=== PATIENT | male | born 1955 | race Asian ===

== ENCOUNTER 2025-01-21 12:24 | Outpatient (CLI) | payer SELFPAY ==
[2025-01-21 15:24] LABS: Anion Gap 10.1 mmol/L (3-11); BUN 25 mg/dL (9-23); CO2 26.9 mmol/L (20.0-31.0); Calcium 9.5 mg/dL (8.3-10.6); Chloride 106 mmol/L (98-107); Cholesterol 224 mg/dL (<200); Glucose 88 mg/dL (74-106); HDL Cholesterol 39 mg/dL (>40); Potassium 4.1 mmol/L (3.5-5.1); Sodium 143 mmol/L (136-145)
[2025-01-21 16:22] LABS: Hemoglobin A1C 5.6 % (<5.7)
[2025-01-22 12:46] LABS: PSA, Screening 172.5 ng/mL (<=4.5)
== END 2025-01-21 12:25 | disposition home or self-care (01) ==
LOC: LOS 12:24
PROVIDERS: PCP Nurse Practitioner Family; Visit Provider Nurse Practitioner Family
DX: Z13.220 Encounter for screening for lipoid disorders (principal); Z12.5 Encounter for screening for malignant neoplasm of prostate; I10 Essential (primary) hypertension; Z13.1 Encounter for screening for diabetes mellitus
CPT/HCPCS: 36415; 80048; 80061; 84153; 83036

== ENCOUNTER 2025-02-05 09:34 | Outpatient (CLI) | payer SELFPAY ==
[2025-02-05 15:23] LABS: Uric Acid 10.7 mg/dL (3.7-9.2)
[2025-02-05 23:46] LABS: PSA, Screening 193.2 ng/mL (<=4.5)
== END 2025-02-05 09:35 | disposition home or self-care (01) ==
LOC: LOS 09:34
PROVIDERS: PCP Nurse Practitioner Family; Visit Provider Nurse Practitioner Family
DX: Z12.5 Encounter for screening for malignant neoplasm of prostate (principal); E79.0 Hyperuricemia without signs of inflammatory arthritis and tophaceous disease
CPT/HCPCS: 36415; 84153; 84550